=== PATIENT | female | born 1995 | race Caucasian/White ===

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

== ENCOUNTER 2025-01-15 18:10 | Emergency (ER) | payer OTHER ==
[2025-01-15 18:21] VITALS: TEMP 98.3; BMI 34.4
[2025-01-15] MEDS ORDERED: DIPHTH,PERTUSS(ACELL),TET 0.5 ML DISP.SYRIN IM ONE (18:52)
[2025-01-15] MEDS ORDERED: ACETAMINOPHEN 325 MG TABLET (FP) ONE (18:52)
[2025-01-15] MEDS: DIPHTH,PERTUSS(ACELL),TET 0.5 ML DISP.SYRIN IM ONE (19:07)
[2025-01-15] MEDS: ACETAMINOPHEN 325 MG TABLET (FP) PO ONE (19:10)
[2025-01-15] MEDS: LACTATED RINGERS SOLUTION 1000 ML INFUS.BAG IV ONE (19:10)
[2025-01-15 19:12] LABS: ABSOLUTE IMMATURE GRANULOCYTES 0.04 x10^3/uL (0.0-0.031); BASOPHILS # 0.02 x10^3/uL (0.01-0.08); BG HCT 49.0 % (32.4-45.2); EOSINOPHIL % 0.7 % (0.7-5.8); EOSINOPHILS # 0.07 x10^3/uL (0.04-0.36); MCHC 32.4 g/dl (32.2-35.5); MEAN CELL VOLUME 83.1 fl (79.4-94.8); MEAN PLT VOLUME 11.4 fl (9.4-12.3); MONOCYTE # 0.58 x10^3/uL (0.24-0.86); MONOCYTE % 5.6 % (4.7-12.5); RDW 12.3 % (12.1-16.5); VENOUS BASE EXCESS -1.2 mmol/L (-2-2); VENOUS O2 SATURATION 71.4 % (70-80); VENOUS PCO2 44.2 mmHg (38-52); VENOUS PH 7.361 (7.310-7.410)
[2025-01-15 19:24] LABS: EPI CELLS 5 /uL (0-25.1); HYALINE CASTS 0 /uL (0-3.1); URINE APPEARANCE CLEAR; URINE BACTERIA 199 /uL (0-1359); URINE BILIRUBIN NEGATIVE (NEGATIVE); URINE COLOR YELLOW; URINE GLUCOSE (UA) 3+ (NEGATIVE); URINE KETONE TRACE (NEGATIVE); URINE LEUK ESTERASE NEGATIVE (NEGATIVE); URINE NITRITE NEGATIVE (NEGATIVE); URINE PROTEIN 1+ (NEGATIVE); URINE RBC 11 /uL (0-23.9); URINE UROBILINOGEN 0.2 mg/dL (0.2-1.0); URINE WBC 10 /uL (0-25.8)
[2025-01-15] MEDS ORDERED: LIDOCAINE HCL 1%, 10 MG/ML (20ML VIAL) ONE (19:32)
[2025-01-15 19:33] LABS: TOT PROT 8.1 g/dl (6.4-8.2)
[2025-01-15 19:34] LABS: CO2 22 mmol/L (21-32)
[2025-01-15 19:35] LABS: ALK PHOS 209 U/L (40-150)
[2025-01-15 19:38] LABS: CREATININE 0.51 mg/dL (0.55-1.3); SGOT/AST 77 U/L (5-34); SGPT/ALT 221 U/L (0-55)
[2025-01-15] MEDS: LIDOCAINE HCL 1%, 10 MG/ML (50 mL VIAL) SQ ONE (19:55)
[2025-01-15] MEDS: LIDOCAINE HCL 2% (50ML VIAL) SQ ONE (19:58)
[2025-01-15 19:59] LABS: HCV DIAGNOSTIC IN-HOUSE W/RFLX NON-REACTIVE (NONREACTIVE)
[2025-01-15 20:27] LABS: HIV INTERPRETATION NEGATIVE (NEGATIVE)
[2025-01-15 21:19] LABS: GLUCOSE,RANDOM 540 mg/dL (74-106)
[2025-01-15 23:48] VITALS: BP 130/88; PULSE 81; RESP 16
== END 2025-01-15 23:48 | disposition home or self-care (01) ==
LOC: JER 18:10
PROC: 0HQFXZZ Repair Right Hand Skin, External Approach (ICD-10-PCS; principal; 2025-01-15)
PROC: 3E0234Z Introduction of Serum, Toxoid and Vaccine into Muscle, Percutaneous Approach (ICD-10-PCS; 2025-01-15)
DX: S61.411A Laceration without foreign body of right hand, initial encounter (principal); R73.9 Hyperglycemia, unspecified; Z23 Encounter for immunization; W26.8XXA Contact with other sharp object(s), not elsewhere classified, initial encounter
CPT/HCPCS: 12001-25; 36415; 73130-TC-RT-FY; 76705-TC; 76882-TC-RT; 80053; 81003; 82010; 82803; 82962; 84703; 85025; 86803; 87086; 87389; 90471; 90715; 99285-25